=== PATIENT | female | born 1965 ===

== ENCOUNTER 2022-06-24 11:30 | Day surgery (SDC) | payer BC ==
[2022-06-23 10:21] VITALS: BMI 29.9
[2022-06-24] MEDS ORDERED: PROPOFOL 200 MG/20 ML VIAL ONE (14:00)
== END 2022-06-24 15:40 | disposition home or self-care (01) ==
LOC: MRI 11:30
PROVIDERS: ATTEND Orthopaedic Surgery
DX: M50.122 Cervical disc disorder at C5-C6 level with radiculopathy (principal); M48.02 Spinal stenosis, cervical region; Z79.899 Other long term (current) drug therapy
CPT/HCPCS: 72141; J2704